=== PATIENT | female | born 1975 | race Two or more races ===

== ENCOUNTER 2023-08-28 03:27 | Emergency (ER) | payer BC ==
[~2023-08-28] VITALS: Ht 177.8 cm; Wt 74.0 kg
[2023-08-28] MEDS ORDERED: cloNIDine HCL 0.1 MG TAB PO ONE (03:45)
[2023-08-28] MEDS ORDERED: LORazepam 2MG/ML-1ML VIAL IM ONE (03:45)
[2023-08-28] MEDS: HYDROcodone-ACET 10/325MG TAB PO ONE (04:01)
[2023-08-28] MEDS: hydrALAZINE HCL 20 MG/ML VL IM ONE ×2 (04:07→05:19)
[2023-08-28] MEDS: METOPROLOL TARTRATE 50 MG TAB PO ONE (04:07)
[2023-08-28] MEDS: PENICILLIN G BENZ 1,200,000 UNITS/2 ML SYRG IM ONE (04:22)
[2023-08-28] MEDS: CLINDAMYCIN 600MG IV 50 ML IV ONE (04:25)
[2023-08-28] MEDS: hydrALAZINE HCL 20 MG/ML VL IV ONE ×2 (05:14→05:18)
[2023-08-28] MEDS ORDERED: IBU600T PO (05:50)
[2023-08-28] MEDS ORDERED: CLIN1CAP70 PO (05:50)
[2023-08-28] MEDS: cloNIDine HCL 0.1 MG TAB PO ONE (05:56)
[2023-08-28] MEDS: LORazepam 2MG/ML-1ML VIAL IV ONE (06:01)
[2023-08-28 06:49] VITALS: BP 151/89; PULSE 139; RESP 18; TEMP 98.3; O2SAT 99
[2023-08-29] MEDS ORDERED: AMOX600S PO (00:35)
== END 2023-08-28 06:48 | disposition home or self-care (01) ==
LOC: ER 03:27
DX: K08.89 Other specified disorders of teeth and supporting structures (principal); I10 Essential (primary) hypertension; I12.9 Hypertensive chronic kidney disease with stage 1 through stage 4 chronic kidney disease, or unspecified chronic kidney disease; N18.9 Chronic kidney disease, unspecified
CPT/HCPCS: 93005; 96365; 96372; 96375; 99285; J0360; J2060; J3490